=== PATIENT | female | born 1985 | race Caucasian/White ===

== ENCOUNTER 2017-02-05 16:22 | Outpatient (CLI) | payer OTHER ==
[2017-02-05 17:15] VITALS: BP 124/75; PULSE 100; RESP 18; TEMP 98.4
--- NOTE | 2017-02-06 13:12 | P.MSEPDOC ---
Presenting Problems - Arrival Data Date of Arrival on Unit: 02/05/17 Time of Arrival on Unit: 16:25 Mode of Transport: Ambulatory - Complaint OB-Reason for Admission/Chief Complaint: Possible Onset of Labor Medical History - Information : 5 Para: 4 Term: 3 : 1 Abortions: Spontaneous or Elective: 0 Number of Living Children: 4 - Gestational Age Expected Date of Delivery: 02/19/17 Gestational Age by BIBI (wks/days): 38 Weeks and 1 Days - History Complications: GDM Review of Systems - Review of Systems Constitutional: No problems Breast: No problems ENT: No problems Cardiovascular: No problems Respiratory: No problems Gastrointestinal: No problems Genitourinary: No problems Musculoskeletal: No problems Neurological: No problems Skin: No problems Vital Signs - Temperature Temperature: 98.4 F Temperature Source: Oral - Pulse Right Brachial Pulse Rate: 100 Pulse Assessment Method: Automatic Cuff - Respirations Respiratory Rate: 18 Oxygen Delivery Method: Room Air O2 Sat by Pulse Oximetry: 95 - Blood Pressure Right Arm Blood Pressure: 124/75 Blood Pressure Mean: 91 Blood Pressure Source: Automatic Cuff Medical Screen Scoring (Pre) - Cervical Exam Dilation: 4-7 cm = 2 Effacement: More than 50% = 2 Membranes: Intact - Uterine Contractions Frequency: > or = 36 weeks =2 Duration: N/A Intensity: N/A - Maternal Vital Signs Maternal Temperature: N/A Maternal Blood Pressure: N/A Signs of Preeclampsia: N/A Maternal Respirations: N/A - Maternal Trauma Maternal Trauma: N/A - Assessment Baseline FHR: 130 Heart Rate - NICHD Category: Category I (Normal) = 0 NST: Reactive Position: N/A Station: N/A - Total Score Total Score (Pre): 6 - Level of Risk Level of Risk: Medium (6-9) Physician Notification (Pre) - Physician Notified Physician Notified Date: 02/05/17 Physician Notified Time: 16:50 Physician/Practitioner Notifed:: cristhian Spoke With: cristhian New Order Received: Yes - Notification Comment Comment: to observe in triage x 1 hr and recheck cervix. if not in labor may discharge home. to follow up at next appt scheduled Medical Screen Scoring (Post) - Cervical Exam Dilation: 4-7 cm = 2 Effacement: More than 50% = 2 Membranes: Intact - Uterine Contractions Frequency: N/A Duration: N/A Intensity: N/A - Maternal Vital Signs Maternal Temperature: N/A Maternal Blood Pressure: N/A Signs of Preeclampsia: N/A Maternal Respirations: N/A - Maternal Trauma Maternal Trauma: N/A - Assessment Heart Rate: 120 Heart Rate - NICHD Category: Category I (Normal) = 0 NST: Reactive Position: N/A Station: N/A - Total Score Total Score (Post): 4 - Post Treatment Level of Risk Post Treatment Level of Risk: Low (0-5) Physician Notification (Post) - Physician Notified Physician Notified Date: 02/05/17 Physician Notified Time: 16:50 Spoke With: cristhian - Notification Comment Comment: may disch if not in active labor and no cervical change after one hour of observationn. Disposition - Disposition OB Disposition: Discharge to home Discharge Date: 02/05/17 Discharge Time: 18:20 I agree with the RN Medical Screening Exam: Yes Risk & Benefit of care provided described in d/c instruction: Yes Diagnosis: FALSE LABOR AT OR AFTER 37 COMPLETED WEEKS OF GESTATION
== END 2017-02-05 18:20 | disposition home or self-care (01) ==
LOC: FBPOP 16:22
PROVIDERS: ATTEND Obstetrics & Gynecology
DX: O47.1 False labor at or after 37 completed weeks of gestation (principal); Z3A.38 38 weeks gestation of pregnancy
CPT/HCPCS: 59025; G0463; 99213

== ENCOUNTER 2017-02-06 09:51 | Inpatient (IN) | payer OTHER ==
[2017-02-06] MEDS ORDERED: TERBUTALINE 1 MG/ML VIAL SQ PRN (13:01)
[2017-02-06] MEDS ORDERED: LIDOCAINE 1% (PF) 10 MG/ML (30 ML SDV) SQ PRN (13:01)
[2017-02-06] MEDS ORDERED: OXYTOCIN 10 UNIT/ML 1 ML VIAL IM PRN (13:01)
[2017-02-06] MEDS ORDERED: METHYLERGONOVINE 0.2 MG/ML 1 ML AMP IM PRN (13:01)
[2017-02-06] MEDS ORDERED: CARBOPROST TROMETHAMINE 250 MCG/ML 1 ML AMP IM PRN ×2 (13:01→13:02)
[2017-02-06] MEDS ORDERED: LACTATED RINGERS 1,000 ML IV SCH ×2 (13:15)
[2017-02-06 13:16] VITALS: BMI 38.9
[2017-02-06 13:26] LABS: Glucose,Whole Blood 78 mg/dL (75-99)
[2017-02-06 13:36] LABS: Anisocytosis Slight; Basophils % (A) 0 %; CH 26.4; Eosinophils # (A) 0.1 k/uL (0-0.7); Eosinophils % (A) 1 %; HCT 37.9 % (34.0-46.0); HDW 2.98; HGB 11.9 gm/dL (11.4-16.0); Hypochromasia Slight; Luc % (Auto) 2; Lymphocytes # (A) 1.9 k/uL (1.0-4.8); Lymphocytes % (A) 16 %; MCHC 31.4 g/dL (31.0-37.0); MCV 82.8 fL (80.0-100.0); Mean Platelet Volume 11.2; Monocytes # (A) 0.5 k/uL (0-1.0); Monocytes % (A) 4 %; Neutrophils # (A) 9.2 k/uL (1.3-7.7); Neutrophils % (A) 77 %; RBC 4.58 m/uL (3.80-5.40); RDW 16.1 % (11.5-15.5); WBC (Perox) 12.63
[2017-02-06 14:16] VITALS: RESP 16
[2017-02-06] MEDS ORDERED: HYDROCORTISONE 2.5% RECTAL CREAM 30 GM TUBE RECTAL PRN (17:07)
[2017-02-06] MEDS ORDERED: diphenhydrAMINE 25 MG CAP PO PRN (17:07)
[2017-02-06] MEDS ORDERED: ZOLPIDEM 5 MG TAB PO PRN (17:07)
[2017-02-06] MEDS ORDERED: ACETAMINOPHEN TAB 325 MG TAB PO PRN (17:07)
[2017-02-06] MEDS ORDERED: SIMETHICONE 80 MG CHEWABLE PO PRN (17:07)
[2017-02-06] MEDS ORDERED: Acetaminophen-Codeine 300-30mg TAB PO PRN ×2 (17:07)
[2017-02-06] MEDS ORDERED: LANOLIN CREAM 5 GM TUBE TOPICAL PRN (17:07)
[2017-02-06] MEDS ORDERED: WITCH HAZEL 1 EACH MED..PAD TOPICAL PRN (17:07)
[2017-02-06] MEDS ORDERED: BENZOCAINE/MENTHOL SPRAY 1 GM/SPRAY AEROSOL TOPICAL PRN (17:07)
[2017-02-06] MEDS ORDERED: diphenhydrAMINE 50 MG CAP PO PRN (17:07)
[2017-02-06] MEDS ORDERED: diphenhydrAMINE 50 MG/ML 1 ML VIAL IVP PRN ×2 (17:07)
--- NOTE | 2017-02-06 17:21 | P.HPOB ---
History of Present Illness H&P Date: 02/06/17 Chief Complaint: IUP term: active labor Patient is a 31-year-old at 38 weeks gestation who arrives in active labor. Making cervical change. She was dilated yesterday for she is now dilated to 6 and artificial rupture membranes was performed and clear fluid is noted. Her course was,. By diabetes mellitus. She was diagnosed with diabetes at approximately 14 weeks gestation and correlation care with maternal- medicine has been done it was noted that she had a marginal cord insertion with circumvallate placenta as well. She's been followed very closely throughout the and other than the above problems has not had any significant issues or concerns over the last several weeks. We expect spontaneous vaginal delivery. Pertinent labs include A- blood type Rh antibody was negative, rubella nonimmune, hepatitis B surface antigen RPR were negative. GBS was negative. On physical exam vital signs are stable and afebrile. Heart regular, lungs clear, extremities without pain. Osteopathic exams unremarkable. Assessment intrauterine at 38 weeks' gestation plan expect spontaneous vaginal delivery. Past Medical History Past Medical History: No Reported History History of Any Multi-Drug Resistant Organisms: None Reported Past Surgical History: No Surgical Hx Reported Past Anesthesia/Blood Transfusion Reactions: No Reported Reaction Past Psychological History: No Psychological Hx Reported Smoking Status: Never smoker Past Drug Use History: None Reported - Past Family History Father Family Medical History: Hypertension Medications and Allergies Home Medications Medication Instructions Recorded Confirmed Type glyBURIDE [Diabeta] 10 mg PO BID 02/05/17 02/05/17 History Allergies Allergy/AdvReac Type Severity Reaction Status Date / Time No Known Allergies Allergy Verified 02/06/17 10:06 Exam Osteopathic Statement: *. No significant issues noted on an osteopathic structural exam other than those noted in the History and Physical/Consult. - Vital Signs Vital signs: Vital Signs Temp Pulse Resp BP 02/06/17 12:55 98.2 F 88 16 119/62 02/06/17 10:07 97.7 F 115 H 20 118/74 Intake and Output 02/06/17 02/06/17 02/06/17 06:59 14:59 22:59 Intake Total 250 Balance 250 Intake: Oral 250 Other: # Voids 1 Weight 93.44 kg Patient Weight 02/07/17 06:59 Weight 93.44 kg Results Result Diagrams: 02/06/17 13:10 Abnormal Lab Results - Last 24 Hours (Table) 02/06/17 Range/Units 13:10 WBC 12.0 H (3.8-10.6) k/uL RDW 16.1 H (11.5-15.5) % Neutrophils # 9.2 H (1.3-7.7) k/uL
[2017-02-06] MEDS ORDERED: OXYTOCIN 10 UNIT/ML 1 ML VIAL ONE (17:24)
[2017-02-06] MEDS ORDERED: PROPOFOL 10 MG/ML 20 ML VIAL IV ONE (17:24)
[2017-02-06] MEDS ORDERED: fentaNYL (PF) 50 MCG/ML 2 ML AMP ONE (17:24)
[2017-02-06] MEDS ORDERED: SUCCINYLCHOLINE CHLORIDE 100 MG/5 ML SYR IV ONE (17:24)
[2017-02-06] MEDS ORDERED: ceFAZolin 1,000 MG VIAL ONE (17:24)
--- NOTE | 2017-02-06 17:24 | P.PROBDLV ---
Vaginal Delivery Note - . Vaginal Delivery Note: Patient progressed to complete and pushing and initially we had let her try and push with the baby palpated in occiput posterior position. However she was unable to move the baby from a very high -3 station therefore change position was indicated and we continued to monitor the baby during that process. Ultimately after 2 or 3 position changes she felt a significant increase in her Essure and she suddenly pushed and delivered a viable female over an intact perineum from left occiput anterior position. Falling deliver the head anterior posterior shoulders were delivered. Initially the anterior shoulder did not completely clear the pubic bone and rather than put excess traction on the baby who was felt to be macrosomic I did go in and place my left finger under the axilla of the posterior arm and help to rotate the baby into the transverse diameter clearing the anterior shoulder from the pubic symphysis. Once this occurred mouth nares were bulb suctioned and the remainder the baby was delivered and placed on mother's abdomen where the umbilical cord was clamped cut usual fashion. Nursery personnel was present to assume care at that point. Placenta however did not initially deliver without difficulty. Initially after clamping even any traction on the cord felt like it was going to tear the cord the umbilical cord. Therefore stopped with traction and we tried manually fundally massaging as well as having her bear down. Ultimately again we stopped this process and we were monitoring her about 5 minutes later she had an increase in pressures would go back down and the bag or membranes were in the vagina she pushed and delivered what appeared to be an intact placenta but there was no placental tissue that was noted it was only the membranes. Therefore we are taking her to do a exam under anesthesia scissor we can evaluate and try and get the placenta delivered.
[2017-02-06] MEDS ORDERED: ceFAZolin 2 GM in SODIUM CHLORIDE 0.9% 100 ML IVPB ONE (17:36)
--- NOTE | 2017-02-06 17:43 | P.OP ---
Date of Procedure: 02/06/17 Preoperative Diagnosis: Retained placenta Postoperative Diagnosis: Same Procedure(s) Performed: Manual removal of placenta Implants: Anesthesia: GETA Protective Clothing Issuer #1: Aguilar Suero Pathology: other (Placenta) Condition: stable Disposition: floor Indications for Procedure: Operative Findings: Placental disc removed Description of Procedure: Patient was taken to the operating suite where general anesthetic was found be adequate. She was prepped and draped in the normal sterile fashion and placed in the dorsal lithotomy position. Initially a manual exam was done I could feel the placenta within the lower uterus and without difficulty was able to reach in and remove the disc a grossly appeared intact. I did do 2 more exams manually to verify that I cannot feel any further placental tissue I was unable to palpate any further placental tissue. She is therefore taken from the operating suite to the recovery room in stable condition.
[2017-02-06 18:10] LABS: Hemoglobin A1C 6.4 % (4.2-6.1)
[2017-02-06] MEDS: IBUPROFEN 600 MG TAB PO PRN (23:57)
[2017-02-07] MEDS: SENNOSIDES-DOCUSATE SODIUM 1 EACH TAB PO SCH ×2 (04:32→08:14)
[2017-02-07 07:53] LABS: Anisocytosis Slight; Basophils % (A) 0 %; CH 26.5; CHCM 32.2; Eosinophils % (A) 0 %; HCT 28.6 % (34.0-46.0); HDW 2.94; Large Platelets Flag Slight; Luc # (Auto) 0.11; Luc % (Auto) 1; Lymphocytes # (A) 1.5 k/uL (1.0-4.8); Lymphocytes % (A) 8 %; MCH 26.2 pg (25.0-35.0); MCHC 31.6 g/dL (31.0-37.0); MCV 82.9 fL (80.0-100.0); Mean Platelet Volume 11.9; Monocytes # (A) 0.5 k/uL (0-1.0); Monocytes % (A) 3 %; Neutrophils # (A) 16.1 k/uL (1.3-7.7); Neutrophils % (A) 88 %; RBC 3.45 m/uL (3.80-5.40); WBC 18.2 k/uL (3.8-10.6); WBC (Perox) 19.12
[2017-02-07] MEDS: IBUPROFEN 600 MG TAB PO PRN ×2 (08:14→14:06)
[2017-02-07 08:21] VITALS: BP 99/54; PULSE 99; TEMP 98.6
[2017-02-07 08:34] LABS: Large Platelets Present
--- NOTE | 2017-02-07 08:37 | P.DS ---
Providers Date of admission: 02/06/17 12:46 Expected date of discharge: 02/07/17 Attending physician: Aguilar Suero Hospital Course: Nadia araya is doing very well day 1. She is involuting, voiding, and she is tolerating her diet. She voices no complaints. Vital signs are stable and afebrile. Heart regular, lungs clear, extremities without pain. Hemoglobin stable at 9 and she reports that her bleeding is very light. Her abdomen is otherwise soft positive bowel sounds are noted. She is requesting discharge home today. We'll plan discharged home today with a prescription for a breast pump. She requests nothing for pain and she will plan to follow up with me in 6 weeks. Patient Condition at Discharge: Good Plan - Discharge Summary New Discharge Prescriptions: No Action glyBURIDE [Diabeta] 10 mg PO BID Discharge Medication List glyBURIDE [Diabeta] 10 mg PO BID 02/05/17 [History] Follow up Appointment(s)/Referral(s): Aguilar Suero DO [Doctor of Osteopathic Medicine] - 1 Week Activity/Diet/Wound Care/Special Instructions: No heavy lifting, limit stairs and driving and pelvic rest. If any high temperatures, heavy bleeding, or severe pain call my office Discharge Disposition: HOME SELF-CARE
[2017-02-07] MEDS ORDERED: MEASLES-MUMPS-RUBELLA VACC/PF 12,500 UNIT/0.5 ML VIAL SQ ONE (08:41)
[2017-02-07] MEDS ORDERED: Rhogam IMMUNE GLOBULIN 1,500 UNIT/1 ML IM ONE (11:17)
== END 2017-02-07 17:39 | disposition home or self-care (01) | DRG 767 ==
LOC: FBPOP 09:51 → 4FBP 12:46
PROVIDERS: ADMIT Obstetrics & Gynecology; ATTEND Obstetrics & Gynecology
PROC: 10E0XZZ Delivery of Products of Conception, External Approach (ICD-10-PCS; principal; 2017-02-06 17:30)
PROC: 10D17ZZ Extraction of Products of Conception, Retained, Via Natural or Artificial Opening (ICD-10-PCS; principal; 2017-02-06 17:30)
PROC: 10907ZC Drainage of Amniotic Fluid, Therapeutic from Products of Conception, Via Natural or Artificial Opening (ICD-10-PCS; principal; 2017-02-06 17:30)
DX: O24.420 Gestational diabetes mellitus in childbirth, diet controlled (principal); O43.113 Circumvallate placenta, third trimester; O73.1 Retained portions of placenta and membranes, without hemorrhage; Z37.0 Single live birth; Z3A.38 38 weeks gestation of pregnancy
CPT/HCPCS: 59025; 83036; 84112; 85025; 85461; 86850; 86900; 86901; 88307; 90471; 90707; 99213

== ENCOUNTER 2018-01-16 10:39 | Outpatient (CLI) | payer OTHER ==
[2018-01-16 11:22] LABS: Appearance,Urine Cloudy (Clear); Bacteria,Urine Many /hpf; Bilirubin,Urine Negative (Negative); Blood,Urine Trace (Negative); Color,Urine Yellow; Glucose,Urine (UA) 3+ (Negative); Ketones,Urine Trace (Negative); Leukocyte Esterase,Urine Large (Negative); Mucus,Urine Occasional /hpf; Nitrite,Urine Negative (Negative); Protein,Urine Trace (Negative); RBC,Urine 2 /hpf (0-5); Specific Gravity,Urine 1.011 (1.001-1.035); Squamous Epithelial Cell,Urine 7 /hpf (0-4); Urobilinogen,Urine <2.0 mg/dL (<2.0); WBC,Urine 20 /hpf (0-5)
[2018-01-16 11:28] VITALS: RESP 16; TEMP 97.4
[2018-01-16 12:01] LABS: Anisocytosis Slight; Basophils % (A) 0 %; Eosinophils # (A) 0.1 k/uL (0-0.7); Eosinophils % (A) 1 %; HCT 31.4 % (34.0-46.0); HGB 9.3 gm/dL (11.4-16.0); Hypochromasia Marked; Lymphocytes # (A) 1.6 k/uL (1.0-4.8); Lymphocytes % (A) 14 %; MCH 21.3 pg (25.0-35.0); MCHC 29.7 g/dL (31.0-37.0); MCV 71.6 fL (80.0-100.0); Mean Platelet Volume 7.6; Microcytosis Moderate; Monocytes # (A) 0.5 k/uL (0-1.0); Monocytes % (A) 4 %; Neutrophils # (A) 8.9 k/uL (1.3-7.7); Neutrophils % (A) 80 %; Platelet Count 210 k/uL (150-450); Poikilocytosis Slight; RBC 4.39 m/uL (3.80-5.40); RDW 16.5 % (11.5-15.5); WBC 11.2 k/uL (3.8-10.6)
[2018-01-16 12:03] LABS: ALT 37 U/L (9-52); AST 28 U/L (14-36); Blood Urea Nitrogen 4 mg/dL (7-17); LDH 409 U/L (313-618); Uric Acid 3.4 mg/dL (3.7-7.4)
[2018-01-16] MEDS ORDERED: BUTALB/APAP/CAFF 50-325-40MG TAB PO STA (12:23)
[2018-01-16 12:34] LABS: Prothrombin Time 10.1 sec (9.0-12.0)
[2018-01-16 12:40] LABS: Partial Thromboplastin Time 21.6 sec (22.0-30.0)
[2018-01-16 13:33] VITALS: BP 109/73; PULSE 94
--- NOTE | 2018-01-24 08:28 | P.MSEPDOC ---
Presenting Problems - Arrival Data Date of Arrival on Unit: 01/16/18 Time of Arrival on Unit: 10:40 Mode of Transport: Ambulatory - Complaint OB-Reason for Admission/Chief Complaint: PIH Comment: Pt sent over from office after evaluated by Dr Suero for preeclampsia work up, pt has had a headache for the last 3 days and an elevated B/P in office. Medical History - Information : 6 Para: 5 Term: 5 : 0 Abortions: Spontaneous or Elective: 0 Number of Living Children: 5 - Gestational Age Gestational Age by BIBI (wks/days): 36 Weeks and 4 Days Vital Signs - Temperature Temperature: 97.4 F Temperature Source: Temporal Artery Scan - Pulse Pulse Oximetery Pulse Rate: 94 Pulse Assessment Method: Pulse Oximetry - Respirations Respiratory Rate: 16 Oxygen Delivery Method: Room Air - Blood Pressure Right Arm Sitting Blood Pressure: 109/73 Blood Pressure Mean: 85 Blood Pressure Source: Automatic Cuff Medical Screen Scoring (Post) - Cervical Exam Dilation: Exam Deferred Effacement: Exam Deferred Membranes: Intact - Uterine Contractions Frequency: N/A - Maternal Vital Signs Maternal Temperature: N/A Maternal Blood Pressure: N/A Signs of Preeclampsia: Headache = 1 Maternal Respirations: N/A - Pain Assessment Pain Location and Character: Head Pain Scale Used: Numeric (1 - 10) Pain Intensity: 3 Pain Description: *Acute, Throbbing Pain Radiation Location: none Pain Frequency: Constant Pain Duration: 3 Pain Duration Units: Days Pain Behavior: Vocalization Pain Aggravating Factors: Sitting Pharmacological Interventions: PRN Medication - Maternal Trauma Maternal Trauma: N/A - Assessment Heart Rate: 150 Heart Rate - NICHD Category: Category I (Normal) = 0 NST: Reactive Position: N/A Station: N/A - Total Score Total Score (Post): 1 - Post Treatment Level of Risk Post Treatment Level of Risk: Low (0-5) Physician Notification (Post) - Physician Notified Physician Notified Date: 01/16/18 Physician Notified Time: 13:20 Physician/Practitioner Notified:: Pio Spoke With: Pio New Order Received: Yes - Notification Comment Comment: Pt headache pain reduced with Fiorcet administration, script to be called in to pts pharmacy. Pt to follow up in 1 wk. Disposition - Disposition OB Disposition: Discharge to home, Written follow up instructions reviewed Discharge Date: 01/16/18 Discharge Time: 13:30 I agree with the RN Medical Screening Exam: Yes Risk & Benefit of care provided described in d/c instruction: Yes Diagnosis: GESTATIONAL HTN W/O SIGNIFICANT PROTEINURIA, THIRD TRIMESTER
== END 2018-01-16 13:30 | disposition home or self-care (01) ==
LOC: FBPOP 10:39
PROVIDERS: ATTEND Obstetrics & Gynecology
DX: O13.3 Gestational [pregnancy-induced] hypertension without significant proteinuria, third trimester (principal); Z3A.36 36 weeks gestation of pregnancy
CPT/HCPCS: 59025; 81001; 82565; 82570; 83615; 84156; 84450; 84460; 84520; 84550; 85025; 85610; 85730

== ENCOUNTER 2018-01-20 06:00 | Inpatient (IN) | payer OTHER ==
[2018-01-20] MEDS: LACTATED RINGERS 1,000 ML IV ONE ×2 (12:50→17:05)
[2018-01-20] MEDS ORDERED: CITRIC ACID-SODIUM CITRATE 15 ML CUP PO ONE (12:55)
[2018-01-20 13:10] VITALS: BMI 40.0
[2018-01-20] MEDS ORDERED: ACETAMINOPHEN IV (For NPO) 1,000 MG in EMPTY BAG 1 BAG IVPB STA (13:30)
[2018-01-20 13:38] LABS: Anisocytosis Slight; Basophils % (A) 0 %; Eosinophils % (A) 0 %; HCT 32.3 % (34.0-46.0); Hypochromasia Marked; Lymphocytes # (A) 1.9 k/uL (1.0-4.8); Lymphocytes % (A) 18 %; MCHC 31.1 g/dL (31.0-37.0); MCV 70.7 fL (80.0-100.0); Mean Platelet Volume 7.6; Microcytosis Moderate; Monocytes # (A) 0.4 k/uL (0-1.0); Monocytes % (A) 4 %; Neutrophils # (A) 8.4 k/uL (1.3-7.7); Neutrophils % (A) 76 %; Platelet Count 203 k/uL (150-450); Poikilocytosis Slight; RBC 4.57 m/uL (3.80-5.40); RDW 16.8 % (11.5-15.5)
[2018-01-20 13:41] LABS: Prothrombin Time 10.1 sec (9.0-12.0)
[2018-01-20] MEDS ORDERED: GELATIN SPONGE,ABSORB (SMALL) 1 EACH SPONGE ONE (14:14)
[2018-01-20] MEDS ORDERED: ceFAZolin IN SWFI 2 GM/20 ML SYRINGE IVP ONE (15:00)
[2018-01-20 16:03] LABS: Glucose,Whole Blood 85 mg/dL (75-99)
[2018-01-20] MEDS ORDERED: OXYTOCIN 10 UNIT/ML 1 ML VIAL ONE (17:14)
[2018-01-20] MEDS ORDERED: fentaNYL (PF) 50 MCG/ML 2 ML AMP ONE (17:14)
[2018-01-20] MEDS ORDERED: MORPHINE SULFATE (PF) 0.3 MG/0.3 ML SYR ONE (17:14)
[2018-01-20] MEDS ORDERED: KETOROLAC 30 MG/ML 1 ML VIAL ONE (17:14)
[2018-01-20] MEDS ORDERED: ONDANSETRON 4 MG/2 ML VIAL ONE (17:14)
[2018-01-20] MEDS ORDERED: METOCLOPRAMIDE 5 MG/ML 2 ML VIAL IVP PRN (18:32)
[2018-01-20] MEDS ORDERED: diphenhydrAMINE 50 MG/ML 1 ML VIAL IVP PRN ×2 (18:32)
[2018-01-20] MEDS ORDERED: ZOLPIDEM 5 MG TAB PO PRN (18:32)
[2018-01-20] MEDS ORDERED: diphenhydrAMINE 25 MG CAP PO PRN (18:32)
[2018-01-20] MEDS ORDERED: NALOXONE 0.4 MG/ML 1 ML VIAL IV PRN ×2 (18:32→19:38)
[2018-01-20] MEDS ORDERED: ONDANSETRON 4 MG/2 ML VIAL IVP PRN (18:32)
[2018-01-20] MEDS ORDERED: diphenhydrAMINE 50 MG CAP PO PRN (18:32)
--- NOTE | 2018-01-20 18:38 | P.HPOB ---
History of Present Illness H&P Date: 01/20/18 Chief Complaint: Intrauterine at term: Gestational hypertension: Gestational diabe Patient is a 32-year-old at 37 weeks gestation who arrives for a primary section following gestational hypertension diagnosed by maternal- medicine as well as a history of gestational diabetes through the . It is noted that over her last several deliveries were vaginal she had placental issues where the placenta did not separate well from the uterus or she had heavy bleeding following removal of the placenta and as such a decision due to prior history of emergent surgery it was decided to try and do a Haresh section to eliminate that is a possibility. Risks/benefits/ alternatives to a primary section with bilateral partial salpingectomy for family planning was done with the patient and did include but were not limited to bleeding and infection, damage to bladder, damage to bowel, vascular injuries, nerve damage, ureteral injuries. She was seen yesterday by maternal- medicine and had a severe headache and there decision to have her delivered this week was made based on slightly elevated blood pressures over her prior and a headache that would not resolve. She was scheduled for but came to my office today to sign her paperwork in the severe headache continued therefore a decision to perform her surgery section today has been made. All the questions were answered for her at this time. The again was, complicated by by gestational diabetes for which she was being seen by MFM. While she not have any true elevated blood pressures low pressures were high for her normal blood pressures in the 120s over 60s she had multiple 130s over 80s blood pressures in the last few days. Past Medical History Past Medical History: No Reported History History of Any Multi-Drug Resistant Organisms: None Reported Past Surgical History: No Surgical Hx Reported Additional Past Surgical History / Comment(s): carpal tunnel bilaterally Past Anesthesia/Blood Transfusion Reactions: No Reported Reaction Past Psychological History: No Psychological Hx Reported Smoking Status: Never smoker Past Drug Use History: None Reported - Past Family History Father Family Medical History: Diabetes Mellitus, Hypertension Medications and Allergies Home Medications Medication Instructions Recorded Confirmed Type Insulin Glargine,Hum.rec.anlog 42 unit SQ HS 01/16/18 01/20/18 History [Basaglar Kwikpen U-100] Insulin Glulisine [Apidra] 14 unit SQ AC-TID 01/16/18 01/20/18 History Iron 18 mg PO DAILY 01/16/18 01/20/18 History Pnv No.95/Ferrous Fum/Folic AC 1 each PO DAILY 01/20/18 01/20/18 History [ Multivitamin Tablet] Allergies Allergy/AdvReac Type Severity Reaction Status Date / Time No Known Allergies Allergy Verified 01/20/18 12:49 Exam Osteopathic Statement: *. No significant issues noted on an osteopathic structural exam other than those noted in the History and Physical/Consult. Vital Signs Temp Pulse Resp BP Pulse Ox 01/20/18 13:04 97.5 F L 96 18 124/72 97 Intake and Output 01/20/18 01/20/18 01/20/18 06:59 14:59 22:59 Intake Total 900 Balance 900 Intake: Intake, IV Titration 900 Amount ACETAMINOPHEN IV (For NPO 400 ) 1,000 mg In Empty Bag 1 bag @ 400 mls/hr IVPB ONCE STA Rx#:[id number] Lactated Ringers 1,000 ml 500 @ 125 mls/hr IV .Q8H [facility] Rx#:[id number] Other: # Voids 1 Weight 92.986 kg - OBG Physical Exam Breast: both: normal (no masses) Abdomen: bowel sounds normal, no diffuse tenderness, no bruit present, no guarding noted, no hepatomegaly, no splenomegaly, no mass Vulva: both: normal Vagina: normal moisture, no discharge Cervix: no lesion, no discharge Uterus: normal size, normal contour Adnexa: both: normal Anus/Rectum: normal perianal skin, no rectal mass, no hemorrhoids, heme negative Results Result Diagrams: 01/20/18 12:57 Abnormal Lab Results - Last 24 Hours (Table) 01/20/18 01/20/18 Range/Units 12:57 12:58 WBC 11.0 H (3.8-10.6) k/uL Hgb 10.0 L (11.4-16.0) gm/dL Hct 32.3 L (34.0-46.0) % MCV 70.7 L (80.0-100.0) fL MCH 22.0 L (25.0-35.0) pg RDW 16.8 H (11.5-15.5) % Neutrophils # 8.4 H (1.3-7.7) k/uL APTT 21.0 L (22.0-30.0) sec
[2018-01-20] MEDS ORDERED: OXYTOCIN 20 UNITS/1000 ML NS 1,000 ML IV SCH (18:45)
[2018-01-20] MEDS ORDERED: HYDROmorphone 1 MG/ML 1 ML SYRINGE IVP PRN (19:38)
[2018-01-20] MEDS ORDERED: NALBUPHINE 10 MG/ML VIAL (10ML MDV) IV PRN (19:38)
[2018-01-20 21:54] LABS: Hemoglobin A1C 6.3 % (4.0-6.0)
[2018-01-20] MEDS: SENNOSIDES-DOCUSATE SODIUM 1 EACH TAB PO SCH (23:30)
[2018-01-20] MEDS: LACTATED RINGERS 1,000 ML IV SCH ×2 (23:30→23:31)
[2018-01-21] MEDS: ceFAZolin IN SWFI 2 GM/20 ML SYRINGE IVP SCH ×2 (00:02→07:36)
[2018-01-21] MEDS: KETOROLAC 30 MG/ML 1 ML VIAL IVP PRN ×3 (00:03→14:04)
[2018-01-21] MEDS: LACTATED RINGERS 1,000 ML IV SCH ×2 (03:36→07:33)
[2018-01-21] MEDS ORDERED: Rhogam IMMUNE GLOBULIN 1,500 UNIT/1 ML IM ONE (05:51)
[2018-01-21] MEDS: SENNOSIDES-DOCUSATE SODIUM 1 EACH TAB PO SCH ×2 (07:33→19:25)
--- NOTE | 2018-01-21 08:54 | P.PNOBGPC ---
Subjective - Subjective Principal diagnosis: Postop day 1 Interval history: Overall she is doing very well. She is starting to ambulate and she is tolerating a liquid diet. We'll plan to advance this today. Denis catheter is just been removed now we'll plan to get her up and moving around but more as the day progresses. Patient reports: Reports appetite normal, Reports voiding normally, Reports pain well controlled, Reports ambulating normally [place]: doing well Objective - Vital Signs Latest vital signs: Vital Signs Temp Pulse Resp BP Pulse Ox 01/21/18 06:00 16 01/21/18 04:00 16 01/21/18 03:15 98.6 F 98 16 126/90 98 01/21/18 02:00 14 01/21/18 00:00 98.2 F 87 16 119/56 100 01/20/18 22:38 16 01/20/18 20:38 97.8 F 83 16 128/62 100 01/20/18 20:08 97.2 F L 82 16 123/60 99 01/20/18 19:38 87 18 146/80 98 01/20/18 19:23 97.9 F 59 L 18 103/55 01/20/18 19:08 97.2 F L 90 18 118/69 98 01/20/18 18:53 18 113/65 98 01/20/18 18:38 96.5 F L 90 18 135/70 97 01/20/18 13:04 97.5 F L 96 18 124/72 97 Intake and Output 01/20/18 01/21/18 01/21/18 22:59 06:59 14:59 Intake Total 1000 Output Total 825 200 Balance 175 -200 Intake: Intake, IV Titration 900 Amount ACETAMINOPHEN IV (For NPO 400 ) 1,000 mg In Empty Bag 1 bag @ 400 mls/hr IVPB ONCE STA Rx#:[id number] Lactated Ringers 1,000 ml 500 @ 125 mls/hr IV [facility] Rx#:[id number] Oral 100 Output: Urine 25 200 Estimated Blood Loss 800 Other: Voiding Method Indwelling Catheter Indwelling Catheter # Voids 1 - Exam Lungs: bilateral: normal Chest: Normal S1, Normal S2 Extremities: Present: normal Abdomen: Present: normal appearance, soft. Absent: distention, tenderness Incision: Present: normal, dry, intact Uterus: Present: normal, firm - Labs Labs: Abnormal Lab Results - Last 24 Hours (Table) 01/20/18 01/20/18 01/20/18 Range/Units 12:55 12:57 12:58 WBC 11.0 H (3.8-10.6) k/uL Hgb 10.0 L (11.4-16.0) gm/dL Hct 32.3 L (34.0-46.0) % MCV 70.7 L (80.0-100.0) fL MCH 22.0 L (25.0-35.0) pg RDW 16.8 H (11.5-15.5) % Neutrophils # 8.4 H (1.3-7.7) k/uL APTT 21.0 L (22.0-30.0) sec Hemoglobin A1c 6.3 H (4.0-6.0) %
[2018-01-21 08:59] LABS: Anisocytosis Slight; Basophils % (A) 0 %; Eosinophils # (A) 0.1 k/uL (0-0.7); Eosinophils % (A) 1 %; HCT 25.4 % (34.0-46.0); Hypochromasia Marked; Lymphocytes # (A) 1.2 k/uL (1.0-4.8); Lymphocytes % (A) 13 %; MCH 22.2 pg (25.0-35.0); MCHC 30.8 g/dL (31.0-37.0); Mean Platelet Volume 8.8; Microcytosis Moderate; Monocytes # (A) 0.4 k/uL (0-1.0); Monocytes % (A) 4 %; Neutrophils # (A) 7.5 k/uL (1.3-7.7); Neutrophils % (A) 81 %; Platelet Count 161 k/uL (150-450); Poikilocytosis Slight; RBC 3.53 m/uL (3.80-5.40); RDW 16.9 % (11.5-15.5); WBC 9.3 k/uL (3.8-10.6)
[2018-01-21 09:00] LABS: HGB 7.8 gm/dL (11.4-16.0)
--- NOTE | 2018-01-21 11:17 | P.OP ---
Date of Procedure: 01/20/18 Preoperative Diagnosis: Intrauterine at term: Gestational hypertension: Gestational diabetes: Family planning Postoperative Diagnosis: Same Procedure(s) Performed: Primary low transverse section Anesthesia: spinal Surgeon: Aguilar Suero [employer] Service Representative #1: Catarina Wilson Estimated Blood Loss (ml): 800 IV fluids (ml): 1,000 Urine output (ml): 100 Pathology: other (Placenta and fallopian tube segments) Condition: stable Disposition: floor Operative Findings: Female weight was 8 lbs. 6 oz. scores were 9 and 9 at one and 5 minutes respectively. It is also noted that patient's lower uterine segment was very friable and was difficult to maintain or obtained good hemostasis. Description of Procedure: patient was taken to the operating suite where a spinal anesthetic was found be adequate. She was prepped and draped in normal sterile fashion and placed in the dorsal supine position with leftward tilt. Initially a Pfannenstiel skin incision was made and this incision was then c fascia was then nicked midline and this opening was extended laterally with Peterson scissors. Superior and inferior aspect of this incision were then grasped tented up and bluntly and sharply dissected off the rectus muscles. Rectus muscles were then divided the midline and sharp dissection through the peritoneum was made. This opening was then extended superiorly and inferiorly with good visualization of both bowel bladder. Bladder blade was then placed in the bladder flap was identified. It was entered sharply with Metzenbaum scissors and this opening was extended across the face of the uterus with Metzenbaum scissors. Knife was then used to incise the uterine wall and was fully developed with a hemostat. The incision was then extended bluntly and head was atraumatically delivered. Mouth nares were then bulb suctioned anterior posterior shoulders were easily delivered with gentle downward and upward traction. Umbilical cord was then clamped cut usual fashion an nursery personnel was present to assume care. Placenta was then delivered intact and Pitocin was added to the IV. Uterus was then exteriorized cleared of clots and debris and closed in 2 layers with 0 Vicryl suture. During this process most of the sutures were pulling through despite having some integrity to the lower uterine segment the tissues which [place] little bit with each bite. Extreme caution was used with the sutures as we can cross uterus with the second layer to try and minimize this shredding of the lower uterine segment with the suture. We're able to gain the majority of hemostasis through this process but some of the areas required extra figure-of- eight sutures to obtain hemostasis. There was one area in particular on the right corner of the incision that continued to bleed despite multiple sutures, FloSeal was attempted to obtain hemostasis in this area but this did not hold. Uterus was reinserted the abdomen and pressure was held we did monitor this for approximately 5 minutes and then the uterus had to be free brought out and another suture was placed. During this time of holding pressure we did tie the fallopian tubes off. A hemostat was used to grasp the fallopian tube and a window was created in the mesosalpinx with the Bovie cautery. 2 proximal and then 2 distal 2-0 silk sutures were then placed and intervening segment was excised and tips were cauterized bilaterally. Once we felt hemostasis was obtained uterus was again reinserted the abdomen and over the next approximately 10 minutes of observation and watching the uterus for any further bleeding one piece of Surgicel was placed in the area of the earlier bleeding where was still just oozing a little bit was but was not actively bleeding. Once we had a comfort level that there was no further bleeding instruments were removed and peritoneal layer was reapproximated with 0 Vicryl suture. Fascial layer was then closed with 0 Vicryl suture one layer of 3-0 Vicryl was placed in deep subcuticular tissues to reapproximate skin and close space. Skin was then closed with renetta. It is noted that the patient reports that a similar incident happened when she was having her carpal tunnel repaired where sutures were being placed in she continued to bleed from the suture placement in that area, it is unclear if this has any relation but is an interesting finding. Once she was completely closed sponge, lap, needle counts were correct 2. Urine was verified to be clear and yellow. She was then taken to the recovery room in stable and satisfactory condition..
--- NOTE | 2018-01-21 11:47 | P.PN ---
Progress Note - Text Date:01/21 Time:713 Patient is status post . Patient seen this morning with VAS score of 2. c/o of pruritus, no c/o nausea/vomiting, comfortable and doing well.
[2018-01-21] MEDS: ACETAMINOPHEN TAB 325 MG TAB PO PRN ×2 (19:26→23:30)
[2018-01-21] MEDS: IBUPROFEN 600 MG TAB PO PRN (20:47)
[2018-01-22] MEDS: LACTATED RINGERS 500 ML IV SCH ×3 (00:32→00:34)
[2018-01-22] MEDS: LACTATED RINGERS 1,000 ML IV SCH ×2 (00:32→00:34)
[2018-01-22] MEDS: IBUPROFEN 600 MG TAB PO PRN ×2 (03:07→13:02)
[2018-01-22] MEDS: ACETAMINOPHEN TAB 325 MG TAB PO PRN (05:53)
[2018-01-22] MEDS: SIMETHICONE 80 MG CHEWABLE PO SCH ×3 (08:41→23:25)
--- NOTE | 2018-01-22 09:04 | P.PNOBGPC ---
Subjective - Subjective Principal diagnosis: Postop day 2 Interval history: Overall patient is doing very well. She is involuting, voiding, and she is tolerating a diet. She was having no issues with her low hemoglobin. She voices no complaints of lightheadedness or feeling dizzy or tachycardic. Therefore we will continue to monitor. As she has had no more bleeding and her incision is clean dry and intact will plan to monitor her symptomatically. She will be discharged home with iron tablets. She will also need a 2 hour Glucola test 6-8 weeks after delivery. Objective - Vital Signs Latest vital signs: Vital Signs Temp Pulse Resp BP Pulse Ox 01/22/18 08:00 98.2 F 88 16 125/73 01/21/18 23:45 98.6 F 90 16 104/54 96 01/21/18 23:41 98.6 F 90 16 104/54 96 01/21/18 22:00 16 01/21/18 19:28 98.3 F 99 18 127/77 95 01/21/18 19:24 18 01/21/18 16:00 98.9 F 87 18 124/70 98 01/21/18 14:00 14 01/21/18 12:00 98.6 F 96 14 122/66 01/21/18 10:00 16 Intake and Output 01/21/18 01/22/18 01/22/18 22:59 06:59 14:59 Intake Total 1600 600 Output Total 700 Balance 900 600 Intake: Oral 1600 Other 600 Output: Urine 700 Other: # Voids 1 # Bowel Movements 1 - Exam Lungs: bilateral: normal Chest: Normal S1, Normal S2 Extremities: Present: normal Abdomen: Present: normal appearance, soft. Absent: distention, tenderness Incision: Present: normal, dry, intact Uterus: Present: normal, firm
[2018-01-22] MEDS: HYDROcodone/APAP 7.5-325MG 1 EACH TAB PO PRN ×3 (09:19→21:42)
[2018-01-22] MEDS: SENNOSIDES-DOCUSATE SODIUM 1 EACH TAB PO SCH ×2 (10:05→20:43)
[2018-01-23] MEDS: IBUPROFEN 600 MG TAB PO PRN ×3 (00:39→11:45)
[2018-01-23] MEDS: HYDROcodone/APAP 7.5-325MG 1 EACH TAB PO PRN ×3 (02:04→11:46)
[2018-01-23 07:34] VITALS: RESP 16
[2018-01-23] MEDS: SENNOSIDES-DOCUSATE SODIUM 1 EACH TAB PO SCH (07:42)
--- NOTE | 2018-01-23 09:06 | P.DS ---
Providers Date of admission: 01/20/18 12:40 Expected date of discharge: 01/23/18 Attending physician: Aguilar Suero Primary care physician: Stated None Hospital Course: Patient is doing very well postop day 3. She is requesting discharge home today. Her vital signs are stable and afebrile. Heart regular, lungs clear, extremities without pain. She'll be discharged home with prescription for Motrin and Mccarr. She is also advised to initiate and continue iron therapy. Otherwise she is doing well. Heart regular, lungs clear, extremities are without pain. Abdomen is soft uterus is firm and incision is otherwise clean dry and intact. We'll plan to remove renetta today and apply Steri-Strips and she will follow up with me in 1 week. All of the questions are answered for her at this time she will follow up again in 1 week. Patient Condition at Discharge: Good Plan - Discharge Summary New Discharge Prescriptions: New HYDROcodone/APAP 5-325MG [Mccarr 5-325] 1 tab PO Q4HR PRN 3 Days #18 tab PRN Reason: Pain Ibuprofen [Motrin] 600 mg PO Q6HR PRN #30 tab PRN Reason: Pain No Action Iron 18 mg PO DAILY Insulin Glulisine [Apidra] 14 unit SQ AC-TID Insulin Glargine,Hum.rec.anlog [Basaglar Kwikpen U-100] 42 unit SQ HS Pnv No.95/Ferrous Fum/Folic AC [ Multivitamin Tablet] 1 each PO DAILY Discharge Medication List Insulin Glargine,Hum.rec.anlog [Basaglar Kwikpen U-100] 42 unit SQ HS 01/16/18 [ History] Insulin Glulisine [Apidra] 14 unit SQ AC-TID 01/16/18 [History] Iron 18 mg PO DAILY 01/16/18 [History] Pnv No.95/Ferrous Fum/Folic AC [ Multivitamin Tablet] 1 each PO DAILY [History] HYDROcodone/APAP 5-325MG [Mccarr 5-325] 1 tab PO Q4HR PRN 3 Days #18 tab [Rx] Ibuprofen [Motrin] 600 mg PO Q6HR PRN #30 tab 01/23/18 [Rx] Follow up Appointment(s)/Referral(s): Aguilar Suero DO [Doctor of Osteopathic Medicine] - 1 Week Activity/Diet/Wound Care/Special Instructions: No heavy lifting, limit stairs and driving, and pelvic rest. If any high temperatures, heavy bleeding, or severe pain call my office
[2018-01-23 09:14] VITALS: BP 117/62; PULSE 77; TEMP 98.2
== END 2018-01-23 12:15 | disposition home or self-care (01) | DRG 766 ==
LOC: 4FBP 12:40
PROVIDERS: ADMIT Obstetrics & Gynecology; ATTEND Obstetrics & Gynecology
PROC: 0UB70ZZ Excision of Bilateral Fallopian Tubes, Open Approach (ICD-10-PCS; 2018-01-20)
PROC: 10D00Z1 Extraction of Products of Conception, Low, Open Approach (ICD-10-PCS; principal; 2018-01-20 06:00)
PROC: 3E0234Z Introduction of Serum, Toxoid and Vaccine into Muscle, Percutaneous Approach (ICD-10-PCS; 2018-01-21)
DX: O13.4 Gestational [pregnancy-induced] hypertension without significant proteinuria, complicating childbirth (principal); O24.424 Gestational diabetes mellitus in childbirth, insulin controlled; O26.893 Other specified pregnancy related conditions, third trimester; Z37.0 Single live birth; Z3A.37 37 weeks gestation of pregnancy; Z30.2 Encounter for sterilization; Z67.11 Type A blood, Rh negative; Z79.4 Long term (current) use of insulin; Z79.899 Other long term (current) drug therapy; Z82.49 Family history of ischemic heart disease and other diseases of the circulatory system; Z83.3 Family history of diabetes mellitus
CPT/HCPCS: 83036; 85025; 85461; 85610; 85730; 86850; 86900; 86901; 88302; 88307